=== PATIENT | male | born 1950 | race Caucasian/White ===

== ENCOUNTER 2018-01-31 07:17 | Day surgery (SDC) | payer OTHER, MEDICARE ==
--- NOTE | 2018-01-29 08:57 | RAD REPORT ---
EXAM DESCRIPTION: RADOP - Outpt Chest Pa/Lat (2 Views) - 01/29/2018 8:44 am CLINICAL HISTORY: Hypertension, tachycardia COMPARISON: 07/17/2016 FINDINGS: The lungs are clear. The heart is normal in size. No displaced fractures. Mild dextroscoli osis of the upper thoracic spine. IMPRESSION: No acute or concerning finding suspected.
--- NOTE | 2018-01-29 09:04 | EKG ---
Test Date: 2018-01-29 Test Time: 08:28:38 Dress Cutter: MARICRUZ MEASUREMENT RESULTS: Intervals: Rate: 63 ID: [id number] QRSD: 94 QT: 416 QTc: 425 [place]: P: 47 ID: [id number] QRS: 36 T: 29 INTERPRETIVE STATEMENTS: Normal sinus rhythm RSR' or QR pattern in V1 suggests right ventricular conduction delay Borderline ECG Compared to ECG 07/17/2016 05:45:08 RSR' in V1 or V2 now present Incomplete right bundle-branch block no longer present Electronically Signed On 01-29-18 09:03:44 CDT by Shaun Bedolla
[2018-01-29 09:36] LABS: Absolute Lymphocytes (CBC) 1.2 K/uL (0.7-4.9); Absolute Monocytes 0.4 K/uL (0.1-1.3); Absolute Neutrophil 2.8 K/uL (1.8-8.0); Basophils % 0.6 % (0-1.3); Eosinophils % 5.1 % (0-4.4); Hematocrit 41.4 % (39.6-49.0); Lymphocytes % 25.3 % (15.3-44.8); MCH 31.4 pg (27.0-35.0); MCV 94.6 fL (80-100); Monocytes % 8.2 % (3.3-12.3); RBC Red Blood Cell Count 4.38 M/uL (4.33-5.43)
[2018-01-29 10:05] LABS: Potassium 4.4 mEq/L (3.6-5.0)
[2018-01-29 10:12] LABS: Albumin 3.9 g/dL (3.2-5.5); Bilirubin Direct 0.1 mg/dL (0-0.2); Bilirubin Total 0.6 mg/dL (0.3-1.2); Protein, Total 6.6 g/dL (6.0-8.3)
[2018-01-31] MEDS ORDERED: ROCURONIUM 50 MG/5 ML VIAL IV ONE (07:29)
[2018-01-31] MEDS ORDERED: MIDAZOLAM HCL 2 MG/2 ML INJ ONE (07:29)
[2018-01-31] MEDS ORDERED: LIDOCAINE 1% MPF 5 ML VIAL ONE (07:29)
[2018-01-31] MEDS ORDERED: FENTANYL CITR 100 MCG/2 ML ONE (07:29)
[2018-01-31] MEDS ORDERED: PROPOFOL 200 MG/20 ML VIAL IV ONE (07:29)
[2018-01-31] MEDS ORDERED: NA CHLORIDE 0.9% 1,000 ML ONE ×2 (07:32→10:12)
[2018-01-31] MEDS ORDERED: CEFOXITIN/SWI 1gm 1 GM/10 ML SYR ONE (09:09)
[2018-01-31] MEDS ORDERED: EPHEDRINE SULF 50 MG/5 ML SYR ONE (09:39)
[2018-01-31] MEDS ORDERED: ONDANSETRON 4 MG/2 ML VIAL ONE (09:55)
[2018-01-31] MEDS ORDERED: GLYCOPYRROLATE 0.2 MG/ML SYR ONE (09:55)
[2018-01-31] MEDS ORDERED: KETOROLAC 30 MG/ML INJ ONE (09:55)
[2018-01-31] MEDS ORDERED: NEOSTIGMINE 1 MG/ML -5 ML SYRINGE ONE (10:16)
[2018-01-31] MEDS ORDERED: MORPHINE 10 MG/ML VIAL ONE (10:28)
--- NOTE | 2018-01-31 10:57 | P.BOP ---
Preoperative diagnosis: acute cholecystitis, sympt cholelithiasis, hxof gallstone pancreatitis Postoperative diagnosis: same Primary procedure: Laparoscopic cholecystectomy Mechanic Sound Technician: AMBER CATHERINE Estimated blood loss: <10cc Specimen: gb Findings: as above Anesthesia: General Complications: None Transferred to: Recovery Room Condition: Good
[2018-01-31] MEDS ORDERED: CODEINE 30MG/APAP 300MG TAB ONE (11:49)
[2018-01-31 12:46] VITALS: BP 112/67; TEMP 97.2; O2SAT 100
--- NOTE | 2018-01-31 22:37 | OP ---
Surgeon: Leonid Chavez MD Judicial Clerk: Nichelle Ibanez. Preoperative Diagnoses: Acute cholecystitis, symptomatic cholelithiasis, history of gallstone pancre atitis, status post endoscopic retrograde cholangiopancreatography, stent placement and stent removal . Postoperative Diagnoses: Acute cholecystitis, symptomatic cholelithiasis, history of gallstone pancr eatitis, status post endoscopic retrograde cholangiopancreatography, stent placement and stent remova l. Procedure: Laparoscopic cholecystectomy. Estimated Blood Loss: Less than 10 cc. Specimen: Gallbladder. Findings: As above. Anesthesia: General plus local. Indications: This is the case of a 67-year-old patient, who comes to us with a history of acute chol ecystitis, symptomatic cholelithiasis. He said at one point he has gallstone pancreatitis, not too l catrachito ago he had an ERCP with stent placement and before he came to my office, he already had the stent removed. The patient was seen in the office, it was fully explained to him the benefits, alternativ es, and risks of laparoscopic, possible open cholecystectomy which include but are not limited to inf ection, bleeding, damage to adjacent structures, anesthesia complication, choledocholithiasis, bile l eak, pancreatitis, AR, and even . He also understands this may not relieve any symptoms. He mi ght need more than one surgical intervention. He understood. Signed a consent. He wants to have th e gallbladder removed before he get into the same issue he was before, so I do agree with him. Description Of Procedure: The patient was brought to the operating room, placed in the supine positi on. Anesthesia was done without complication. Abdominal area was prepped and draped in usual steril e fashion. Marcaine 0.5% injected for local anesthetic, followed by sharp incision of the skin in th e infraumbilical region. Incision was carried down to fascia, which was opened under direct vision. Peritoneum was encountered, opened under direct vision. Vicryl #1 placed inside the fascia. Andre trocar was carefully introduced. Pneumoperitoneum was obtained. Three more trocars were placed in the right upper quadrant, 5 mm each one of them under direct visualization. A grasper was placed in the fundus of the gallbladder, another grasper in the infundibulum, retracted the gallbladder in the inferolateral fashion exposing the triangle of Calot and obtaining critical view of safety. The fatt y tissue running gallbladder was slightly bit hard, not a surprising finding since the patient had hi story of pancreatitis in the past. We were able to remove the fat down, identify the cystic duct and cystic artery, ligate those placing at least 4 clips proximal, 1 clip distal, ligation in the middle . cystic artery, 3 clips proximal, 1 clip distal, and ligation in the middle. Cystic duct and cysti c artery were clearly isolated free circumferentially and a connection between those and the gallblad donato was clearly identified. After that we inspected the area once again. Clips were intact. No leny e leak. No bleeding. Gallbladder fossa was intact. At that moment, I proceeded to remove the troca rs under direct vision. Deflated pneumoperitoneum, closed the fascia with #1 Vicryl. Irrigated the subcutaneous tissue and closed that with 3-0 chromic and skin with 3-0 chromic and subcuticular closu re and Steri-Strips on top. Sponge count and instrument counts were correct. The patient tolerated the procedure well. The patient was sent to Recovery in stable condition. JOSEPH/MILLIE Voice ID: [id number] Report ID: [id number]
--- NOTE | 2018-01-31 22:43 | DS ---
Date of Discharge: 01/31/2018 Diagnoses: Acute cholecystitis, symptomatic cholelithiasis, history of gallstones pancreatitis, hist ory of endoscopic retrograde cholangiopancreatography with stent placement and stent removal. Procedure: Laparoscopic cholecystectomy. Disposition: Home. Activity: As tolerated. No heavy lifting. Followup: Follow up in my office in 1 week. Call for appointment [phone]. Keep area dry for 48 ho urs, then may shower. Keep Steri-Strips intact. Medications: Include Tylenol No. 3 q.4 hours p.r.n. pain and Cipro 500 p.o. q.12 hours. JOSEPH/MILLIE Voice ID: [id number] Report ID: [id number]
== END 2018-01-31 12:35 | disposition home or self-care (01) ==
LOC: OR 07:17
PROVIDERS: ATTEND Surgery
PROC: 0FT44ZZ Resection of Gallbladder, Percutaneous Endoscopic Approach (ICD-10-PCS; principal; 2018-01-31 08:30)
DX: K80.12 Calculus of gallbladder with acute and chronic cholecystitis without obstruction (principal); E11.9 Type 2 diabetes mellitus without complications; I10 Essential (primary) hypertension; K21.9 Gastro-esophageal reflux disease without esophagitis; Z98.890 Other specified postprocedural states; Z87.19 Personal history of other diseases of the digestive system; Z79.82 Long term (current) use of aspirin; Z88.3 Allergy status to other anti-infective agents; Z82.49 Family history of ischemic heart disease and other diseases of the circulatory system
CPT/HCPCS: 36415; 47562; 71046; 80048; 80076; 82150; 82962 ×2; 83690; 85025; 88304; 93005; J2250; J2405; J2710; J3010; J7030 ×2

== ENCOUNTER 2019-06-02 11:28 | Emergency (ER) | payer OTHER, MEDICARE ==
--- NOTE | 2019-06-02 13:07 | EDPHYS ---
Physician Documentation [facility] Name: Simone Trinidad Age: 68 yrs Sex: Male : 1950 Arrival Date: 06/02/2019 Time: 11:31 Bed 14 Private MD: Mike Garcia R ED Physician Jose Thomas HPI: 06/02 13:03 This 68 yrs old Male presents to ER via Ambulatory with complaints of gs Shoulder Pain, Hip Pain. 13:03 Onset: The symptoms/episode began/occurred 1 month(s) ago. Modifying factors: The gs symptoms are aggravated by lifting weight, movement. Associated signs and symptoms: Pertinent negatives: abdominal pain, chest pain, diaphoresis, Numbness in right arm, left arm, right leg and left leg. Severity of symptoms: At their worst the symptoms were moderate, in the emergency department the symptoms are unchanged. The patient has experienced similar episodes in the past, a few times. The patient has been recently seen by a physician: an orthopedic surgeon, with similar presenting complaints, lab tests were done, X-rays were performed. Historical: - Allergies: 12:01 No Known Allergies; tw2 - Home Meds: 12:01 metformin 500 mg Oral tab 1 tab 2 times per day [Active]; metoprolol tartrate 25 mg tw2 Oral tab 1 tab once daily [Active]; omeprazole 40 mg Oral cpDR 1 cap once daily [Active]; aspirin 325 mg oral tab [Active]; amlodipine 2.5 mg tab 1 tab once daily [Active]; losartan Oral [Active]; - PMHx: 12:01 Diabetes - NIDDM; Pancreatitis; Hypertension; tw2 - Immunization history:: Adult Immunizations. - Social history:: Smoking status: . - Ebola Screening: : Patient denies travel to an Ebola-affected area in the 21 days before illness onset. ROS: 13:03 All other systems are negative. gs Exam: 13:03 Head/Face: Normocephalic, atraumatic. Eyes: Pupils equal round and reactive to light, gs extra-ocular motions intact. Lids and lashes normal. Conjunctiva and sclera are non-icteric and not injected. Cornea within normal limits. Periorbital areas with no swelling, redness, or edema. ENT: Nares patent. No nasal discharge, no septal abnormalities noted. Tympanic membranes are normal and external auditory canals are clear. Oropharynx with no redness, swelling, or masses, exudates, or evidence of obstruction, uvula midline. Mucous membranes moist. Neck: Trachea midline, no thyromegaly or masses palpated, and no cervical lymphadenopathy. Supple, full range of motion without nuchal rigidity, or vertebral point tenderness. No Meningismus. Chest/axilla: Normal chest wall appearance and motion. Nontender with no deformity. No lesions are appreciated. Cardiovascular: Regular rate and rhythm with a normal S1 and S2. No gallops, murmurs, or rubs. Normal PMI, no JVD. No pulse deficits. Respiratory: Lungs have equal breath sounds bilaterally, clear to auscultation and percussion. No rales, rhonchi or wheezes noted. No increased work of breathing, no retractions or nasal flaring. Abdomen/GI: Soft, non-tender, with normal bowel sounds. No distension or tympany. No guarding or rebound. No evidence of tenderness throughout. Back: No spinal tenderness. No costovertebral tenderness. Full range of motion. Skin: Warm, dry with normal turgor. Normal color with no rashes, no lesions, and no evidence of cellulitis. Neuro: Awake and alert, GCS 15, oriented to person, place, time, and situation. Cranial nerves II-XII grossly intact. Motor strength 5/5 in all extremities. Sensory grossly intact. Cerebellar exam normal. Normal gait. 13:03 Constitutional: The patient appears alert, awake. 13:03 Musculoskeletal/extremity: Circulation is intact in all extremities. Joints: the left shoulder and right shoulder displays painful range of motion. Vital Signs: 11:58 BP 144 / 88; Pulse 88; Resp 17; Temp 98.2(TE); Pulse Ox 97% on R/A; Weight 84.37 kg; tw2 Height 5 ft. 10 in. (177.80 cm); Pain 9/10; 11:58 Body Mass Index 26.69 (84.37 kg, 177.80 cm) tw2 MDM: 12:58 Patient medically screened. 13:03 Differential diagnosis: tendonitis, arthritis. Data reviewed: vital signs, nurses notes. 13:03 Counseling: I had a detailed discussion with the patient and/or guardian regarding: the historical points, exam findings, and any diagnostic results supporting the discharge/admit diagnosis, the need for outpatient follow up. 06/02 13:20 Order name: Urine Culture ph Administered Medications: No medications were administered Disposition: 06/02/19 13:07 Discharged to Home. Impression: Monoarthritis, not elsewhere classified, right shoulder. - Condition is Stable. - Discharge Instructions: Shoulder Range of Motion Exercises, Arthritis, [id number]. - Prescriptions for Prednisone 20 mg Oral Tablet - take 1 tablet by ORAL route once daily for 5 days; 5 tablet. Tramadol 50 mg Oral Tablet - take 1 tablet by ORAL route every 8 hours as needed; 12 tablet. - Medication Reconciliation Form, Thank You Letter, Antibiotic Education, Prescription Opioid Use form. - Follow up: Private Physician; When: 2 - 3 days; Reason: Re-evaluation by your physician. Signatures: Dispatcher [employer] Shira Lucas RN RN ph Kiara Méndez RN RN tw2 Jose Thomas MD MD Corrections: (The following items were deleted from the chart) 13:21 13:07 06/02/2019 13:07 Discharged to Home. Impression: Monoarthritis, not elsewhere ph classified, right shoulder. Condition is Stable. Forms are Medication Reconciliation Form, Thank You Letter, Antibiotic Education, Prescription Opioid Use. Follow up: Private Physician; When: 2 - 3 days; Reason: Re-evaluation by your physician. gs
--- NOTE | 2019-06-02 13:07 | ER ---
Nurse's Notes [facility] Name: Simone Trinidad Age: 68 yrs Sex: Male : 1950 Arrival Date: 06/02/2019 Time: 11:31 Bed 14 Private MD: Mike Garcia R Diagnosis: Monoarthritis, not elsewhere classified, right shoulder Presentation: 06/02 11:57 Presenting complaint: Patient states: i have having a lot of pain in my hips and tw2 shoulders both sides, the pain in my hips has been going on for 8 months, its really bad, i can hardly get up and down, i went to Dr. Jacob and he did xrays here and some blood tests and i havent got the results back yet, he didn't offer any pain control or anything like that, nubia is not working. Transition of care: patient was not received from another setting of care. Risk Assessment: Do you want to hurt yourself or someone else? Patient reports no desire to harm self or others. Initial Sepsis Screen: Does the patient meet any 2 criteria? No. Patient's initial sepsis screen is negative. Does the patient have a suspected source of infection? No. Patient's initial sepsis screen is negative. Care prior to arrival: None. 11:57 Method Of Arrival: Ambulatory tw2 11:57 Acuity: CAROL 3 tw2 12:01 Onset of symptoms was June 02, 2019. Note pt states "all these tests and xrays were tw2 done recently, id like the results and something to help with the pain". Triage Assessment: 12:01 General: Appears in no apparent distress. well groomed, Behavior is calm, cooperative, tw2 appropriate for age. Pain: Complains of pain in Left and Right hips, Left and Right shoulders. Historical: - Allergies: 12:01 No Known Allergies; tw2 - Home Meds: 12:01 metformin 500 mg Oral tab 1 tab 2 times per day [Active]; metoprolol tartrate 25 mg tw2 Oral tab 1 tab once daily [Active]; omeprazole 40 mg Oral cpDR 1 cap once daily [Active]; aspirin 325 mg oral tab [Active]; amlodipine 2.5 mg tab 1 tab once daily [Active]; losartan Oral [Active]; - PMHx: 12:01 Diabetes - NIDDM; Pancreatitis; Hypertension; tw2 - Immunization history:: Adult Immunizations. - Social history:: Smoking status: . - Ebola Screening: : Patient denies travel to an Ebola-affected area in the 21 days before illness onset. Screenin:19 Abuse screen: Denies threats or abuse. Nutritional screening: No deficits noted. tw2 Tuberculosis screening: No symptoms or risk factors identified. Fall Risk Secondary diagnosis (15 points) impaired mobility. Assessment: 12:45 General: Appears in no apparent distress. comfortable, slender, well groomed, Behavior ph is calm, cooperative, appropriate for age, Denies fever, feeling ill. Pain: Complains of pain in right shoulder and left shoulder and left leg and right leg. Neuro: Level of Consciousness is awake, alert, obeys commands, Oriented to person, place, time, situation. Cardiovascular: Capillary refill < 3 seconds in bilateral fingers Patient's skin is warm and dry. Respiratory: Airway is patent Respiratory effort is even, unlabored. Derm: Skin is intact, is healthy with good turgor, Skin is pink, warm \\T\\ dry. Musculoskeletal: Circulation, motion, and sensation intact. Range of motion: intact in all extremities, Swelling absent. Vital Signs: 11:58 BP 144 / 88; Pulse 88; Resp 17; Temp 98.2(TE); Pulse Ox 97% on R/A; Weight 84.37 kg; tw2 Height 5 ft. 10 in. (177.80 cm); Pain 9/10; 11:58 Body Mass Index 26.69 (84.37 kg, 177.80 cm) tw2 ED Course: 11:31 Patient arrived in ED. as 11:31 Mike Garcia MD is Private Physician. as 11:58 Triage completed. tw2 12:01 Arm band placed on. tw2 12:36 Shira Bethea RN is Primary Nurse. ph 12:40 Jose Thomas MD is Attending Physician. gs 13:00 Patient has correct armband on for positive identification. Bed in low position. Call ph light in reach. Side rails up X 1. Pulse ox on. NIBP on. Door closed. Noise minimized. 13:20 No provider procedures requiring assistance completed. Patient did not have IV access ph during this emergency room visit. Administered Medications: No medications were administered Outcome: 13:07 Discharge ordered by . gs 13:20 Discharged to home ambulatory, with family. ph 13:20 Condition: good 13:20 Discharge instructions given to patient, family, Instructed on discharge instructions, follow up and referral plans. medication usage, Demonstrated understanding of instructions, follow-up care, medications, Prescriptions given X 2. 13:21 Patient left the ED. ph Signatures: Bonnie Chavez Patricia, RN RN Kiara Méndez RN RN tw2 Jose Thomas MD MD
[2019-06-02 13:34] VITALS: BP 144/88; TEMP 98.2; O2SAT 97
== END 2019-06-02 13:21 | disposition home or self-care (01) ==
LOC: ER 11:28
DX: M13.111 Monoarthritis, not elsewhere classified, right shoulder (principal); I10 Essential (primary) hypertension; E11.9 Type 2 diabetes mellitus without complications
CPT/HCPCS: 87086; 87088; 99283

== ENCOUNTER 2020-06-01 02:23 | Emergency (ER) | payer OTHER, MEDICARE ==
[2020-06-01 04:02] LABS: Protime INR 0.92
[2020-06-01 04:06] LABS: Potassium 3.5 mmol/L (3.5-5.1)
[2020-06-01 04:15] LABS: Absolute Lymphocytes (CBC) 1.3 K/uL (0.7-4.9); Basophils % 0.5 % (0-1.3); Hematocrit 37.9 % (39.6-49.0); Lymphocytes % 19.4 % (15.3-44.8); MPV 8.9 fL (7.6-11.3); RBC Red Blood Cell Count 4.02 M/uL (4.33-5.43)
--- NOTE | 2020-06-01 05:06 | EDPHYS ---
Physician Documentation [facility] Name: Simone Trinidad Age: 69 yrs Sex: Male : 1950 Arrival Date: 06/01/2020 Time: 02:24 Bed 20 Private MD: ED Physician French Richard HPI: 06/01 05:42 This 69 yrs old Male presents to ER via Ambulatory with complaints of Vision tw4 Problem. 05:42 The patient is experiencing decreased vision. Onset: The symptoms/episode tw4 began/occurred today. Duration: the symptoms are continuous. Aggravated by nothing. Alleviated by nothing. Severity of symptoms: At their worst the symptoms were moderate in the emergency department the symptoms are unchanged. Historical: - Allergies: 02:53 No Known Allergies; mt2 - Home Meds: 02:49 amlodipine 2.5 mg tab 1 tab once daily for Hypertension [Active]; metformin 500 mg Oral mt2 tab 1 tab 2 times per day for Type 2 Diabetes Mellitus [Active]; metoprolol tartrate 25 mg Oral tab 1 tab once daily for Hypertension [Active]; losartan 100 mg oral tab 1 tab once daily for Hypertension [Active]; omeprazole 40 mg Oral cpDR 1 cap once daily for Gastroesophageal Reflux [Active]; aspirin 81 mg Oral chew 1 tab for Myocardial Infarction Prevention [Active]; Micardis 40 mg Oral tab 1 tab once daily for Hypertension [Active]; prednisone 5 mg Oral tab once daily for Rheumatoid Arthritis [Active]; Plaquenil 200 mg Oral tab 1 tab 2 times per day for Rheumatoid Arthritis [Active]; acetaminophen-codeine 300-30 mg Oral tab 1 tab prn for Pain [Active]; turmeric root extract 500 mg oral cap daily [Active]; - PMHx: 02:50 Rheumatoid Arthritis; mt2 02:53 Diabetes - NIDDM; Hypertension; Pancreatitis; mt2 - Immunization history:: Adult Immunizations up to date. - Social history:: Smoking status: Patient denies any tobacco usage or history of. ROS: 05:42 Constitutional: Negative for fever, chills, and weight loss, Eyes: Negative for injury, tw4 pain, redness, and discharge, Cardiovascular: Negative for chest pain, palpitations, and edema, Respiratory: Negative for shortness of breath, cough, wheezing, and pleuritic chest pain, Abdomen/GI: Negative for abdominal pain, nausea, vomiting, diarrhea, and constipation, Back: Negative for injury and pain, MS/Extremity: Negative for injury and deformity, Skin: Negative for injury, rash, and discoloration, Neuro: Negative for headache, weakness, numbness, tingling, and seizure. Exam: 05:42 Constitutional: This is a well developed, well nourished patient who is awake, alert, tw4 and in no acute distress. Head/Face: Normocephalic, atraumatic. Chest/axilla: Normal chest wall appearance and motion. Nontender with no deformity. No lesions are appreciated. Cardiovascular: Regular rate and rhythm with a normal S1 and S2. No gallops, murmurs, or rubs. Normal PMI, no JVD. No pulse deficits. Respiratory: Lungs have equal breath sounds bilaterally, clear to auscultation and percussion. No rales, rhonchi or wheezes noted. No increased work of breathing, no retractions or nasal flaring. Abdomen/GI: Soft, non-tender, with normal bowel sounds. No distension or tympany. No guarding or rebound. No evidence of tenderness throughout. 05:42 Back: No spinal tenderness. No costovertebral tenderness. Full range of motion. MS/ Extremity: Pulses equal, no cyanosis. Neurovascular intact. Full, normal range of motion. Neuro: Awake and alert, GCS 15, oriented to person, place, time, and situation. Cranial nerves II-XII grossly intact. Motor strength 5/5 in all extremities. Sensory grossly intact. Cerebellar exam normal. Normal gait. 05:42 Eyes: Periorbital structures: appear normal, funduscopic exam reveals no acute changes. Vital Signs: 02:42 BP 147 / 77; Pulse 77; Resp 18; Temp 98.1(O); Pulse Ox 98% on R/A; Weight 81.65 kg; lp1 04:25 BP 141 / 81; Pulse 73; Resp 16; Pulse Ox 97% ; Pain 0/10; mt2 05:30 BP 124 / 77; Pulse 74; Resp 16; Temp 98.0; Pulse Ox 97% ; Pain 0/10; mt2 MDM: 02:32 Patient medically screened. tw4 05:42 Differential diagnosis: Corneal abrasion of Corneal ulcer of. Data reviewed: vital tw4 signs, nurses notes. Data reviewed: lab test result(s), CBC, electrolytes, hepatic panel, radiologic studies, CT scan. Data interpreted: Pulse oximetry: Interpretation: normal. Test interpretation: by ED physician or midlevel provider: ECG. Counseling: I had a detailed discussion with the patient and/or guardian regarding: the historical points, exam findings, and any diagnostic results supporting the discharge/admit diagnosis. Physician consultation: Ashley Ellis MD was contacted at 05:00, regarding need to evaluate the patient as soon as possible, outpatient follow-up, and will see patient in office, later today. 06/01 02:43 Order name: Basic Metabolic Panel; Complete Time: 04:22 [facility] 06/01 04:22 Interpretation: Normal except: GLUC 179; BUN 29; CRE 1.51; GFR 46. [facility] 06/01 02:43 Order name: CBC with Diff; Complete Time: 04:22 [facility] 06/01 04:22 Interpretation: Normal except: RBC 4.02; HGB 13.1; HCT 37.9. [facility] 06/01 02:43 Order name: Protime (+inr); Complete Time: 04:22 [facility] 06/01 04:22 Interpretation: Within normal limits: PT 10.9. 06/01 02:43 Order name: Ptt, Activated; Complete Time: 04:22 [facility] 06/01 04:22 Interpretation: Within normal limits: PTT 29.6. tw 06/01 02:43 Order name: CT Stroke Brain w/o Contrast [facility] 06/01 03:48 Order name: Glucose, Ancillary Testing; Complete Time: 04:22 [facility] 06/01 04:22 Interpretation: Abnormal: GLUC,ANCIL 165. 06/01 02:43 Order name: EKG; Complete Time: 02:44 06/01 02:43 Order name: Accucheck; Complete Time: 03:30 [facility] 06/01 02:43 Order name: Cardiac monitoring; Complete Time: 03:30 [facility] 06/01 02:43 Order name: EKG - Nurse/Tech; Complete Time: 03:30 [facility] 06/01 02:43 Order name: IV Saline Lock; Complete Time: 03:30 [facility] 06/01 02:43 Order name: Labs collected and sent; Complete Time: 03:30 [facility] 06/01 02:43 Order name: NPO; Complete Time: 03:30 tw4 06/01 02:43 Order name: O2 Per Protocol; Complete Time: 03:30 tw4 06/01 02:43 Order name: O2 Sat Monitoring; Complete Time: 03:30 EC:42 Rate is 70 beats/min. Rhythm is regular with Right bundle branch block. QRS [place] is tw4 Normal. [place] interval is normal. QRS interval is normal. QT interval is normal. No Q waves. T waves are Inverted in leads III, V1. No ST changes noted. Clinical impression: NSR w/ Non-specific ST/T Changes. Interpreted by me. Reviewed by me. Administered Medications: 05:30 Drug: predniSONE 60 mg Route: PO; mt2 05:45 Follow up: Response: No adverse reaction; Medication administered at discharge. mt2 Disposition: 06/01/20 05:05 Discharged to Home. Impression: Visual field defects. - Condition is Stable. - Discharge Instructions: Visual Disturbances. - Prescriptions for Medrol (Vlad) 4 mg Oral Tablets, Dose Pack - take 1 tablet by ORAL route as directed - follow package instructions; 1 packet. - Medication Reconciliation Form, Thank You Letter, Antibiotic Education, Prescription Opioid Use form. - Follow up: Ashley Ellis MD; When: Upon discharge from the Emergency Department; Reason: Recheck today's complaints, Continuance of care, Re-evaluation by your physician. - Problem is new. - Symptoms are unchanged. Signatures: Dispatcher [employer] EDMS Chica Enriquez RN RN lp1 French Richard MD MD tw4 Sariah Falcon RN RN mt2 Corrections: (The following items were deleted from the chart) 02:53 02:49 PMHx: Pancreatitis [Inactive]; mt2 mt2 02:53 02:49 PMHx: Hypertension [Inactive]; mt2 mt2 02:53 02:49 PMHx: Diabetes - NIDDM [Inactive]; mt2 mt2 05:47 05:05 06/01/2020 05:05 Discharged to Home. Impression: Visual field defects. Condition mt2 is Stable. Forms are Medication Reconciliation Form, Thank You Letter, Antibiotic Education, Prescription Opioid Use. Follow up: Ashley Ellis; When: Upon discharge from the Emergency Department; Reason: Recheck today's complaints, Continuance of care, Re-evaluation by your physician. Problem is new. Symptoms are unchanged. tw4
--- NOTE | 2020-06-01 05:06 | ER ---
Nurse's Notes [facility] Name: Simone Trinidad Age: 69 yrs Sex: Male : 1950 Arrival Date: 06/01/2020 Time: 02:24 Bed 20 Private MD: Diagnosis: Visual field defects Presentation: 06/01 02:42 Chief complaint: Patient states: States waking up to go to the bathroom this morning lp1 and had loss of vision to right eye, states "I see black from the 6 o'clock to 9 o;clock; States hx of polymyalgia rheumatica, spoke with specialist who recommended Prednisone for treatment;. Coronavirus screen: Client denies travel out of the [place] in the last 14 days. At this time, the client does not indicate any symptoms associated with coronavirus-19. Ebola Screen: No symptoms or risks identified at this time. Initial Sepsis Screen: Does the patient meet any 2 criteria? No. Patient's initial sepsis screen is negative. Does the patient have a suspected source of infection? No. Patient's initial sepsis screen is negative. Risk Assessment: Do you want to hurt yourself or someone else? Patient reports no desire to harm self or others. Onset of symptoms was June 01, 2020. 02:42 Method Of Arrival: Ambulatory lp1 02:42 Acuity: CAROL 3 lp1 Triage Assessment: 02:56 General: Appears uncomfortable, Behavior is cooperative. mt2 Historical: - Allergies: 02:53 No Known Allergies; mt2 - Home Meds: 02:49 amlodipine 2.5 mg tab 1 tab once daily for Hypertension [Active]; metformin 500 mg Oral mt2 tab 1 tab 2 times per day for Type 2 Diabetes Mellitus [Active]; metoprolol tartrate 25 mg Oral tab 1 tab once daily for Hypertension [Active]; losartan 100 mg oral tab 1 tab once daily for Hypertension [Active]; omeprazole 40 mg Oral cpDR 1 cap once daily for Gastroesophageal Reflux [Active]; aspirin 81 mg Oral chew 1 tab for Myocardial Infarction Prevention [Active]; Micardis 40 mg Oral tab 1 tab once daily for Hypertension [Active]; prednisone 5 mg Oral tab once daily for Rheumatoid Arthritis [Active]; Plaquenil 200 mg Oral tab 1 tab 2 times per day for Rheumatoid Arthritis [Active]; acetaminophen-codeine 300-30 mg Oral tab 1 tab prn for Pain [Active]; turmeric root extract 500 mg oral cap daily [Active]; - PMHx: 02:50 Rheumatoid Arthritis; mt2 02:53 Diabetes - NIDDM; Hypertension; Pancreatitis; mt2 - Immunization history:: Adult Immunizations up to date. - Social history:: Smoking status: Patient denies any tobacco usage or history of. Screenin:52 Abuse screen: Denies threats or abuse. Denies injuries from another. Nutritional lp1 screening: No deficits noted. Tuberculosis screening: No symptoms or risk factors identified. Fall Risk None identified. Assessment: 02:54 General: Appears uncomfortable, Behavior is cooperative. Pain: Complains of pain in mt2 face and right eye Pain currently is 7 out of 10 on a pain scale. Pain: Complains of pain in head and right arm. Neuro: Reports numbness in right hand. Cardiovascular: No deficits noted. Respiratory: No deficits noted. GI: No deficits noted. : No deficits noted. EENT: Reports blurred vision in iris of right eye and inner aspect of conjuctiva of right eye. Derm: No deficits noted. Musculoskeletal: Reports pain in left ear, left cheek, right base of the skull and face. 03:39 Reassessment: No changes from previously documented assessment. Patient and/or family mt2 updated on plan of care and expected duration. Pain level reassessed. Patient is alert, oriented x 3, equal unlabored respirations, skin warm/dry/pink. General: Appears uncomfortable, Behavior is cooperative. Pain: Complains of pain in right side of head Pain currently is 10 out of 10 on a pain scale. Quality of pain is described as sharp. 04:25 Reassessment: Patient and/or family updated on plan of care and expected duration. Pain mt2 level reassessed. Patient is alert, oriented x 3, equal unlabored respirations, skin warm/dry/pink. Patient denies pain at this time. General: Appears comfortable, Behavior is cooperative. Pain: Denies pain. 05:30 Reassessment: Patient and/or family updated on plan of care and expected duration. Pain mt2 level reassessed. Patient is alert, oriented x 3, equal unlabored respirations, skin warm/dry/pink. Patient denies pain at this time. Patient states symptoms have improved. General: Appears comfortable, Behavior is cooperative. Vital Signs: 02:42 BP 147 / 77; Pulse 77; Resp 18; Temp 98.1(O); Pulse Ox 98% on R/A; Weight 81.65 kg; lp1 04:25 BP 141 / 81; Pulse 73; Resp 16; Pulse Ox 97% ; Pain 0/10; mt2 05:30 BP 124 / 77; Pulse 74; Resp 16; Temp 98.0; Pulse Ox 97% ; Pain 0/10; mt2 ED Course: 02:24 Patient arrived in ED. cl3 02:32 Sariah Falcon, RN is Primary Nurse. mt2 02:32 French Richard MD is Attending Physician. tw4 02:52 Triage completed. lp1 02:52 Arm band placed on. lp1 02:56 Patient has correct armband on for positive identification. Bed in low position. Call mt2 light in reach. Side rails up X 1. 03:00 CT Stroke Brain w/o Contrast In Process Unspecified. EDMS 03:25 Initial lab(s) drawn, by me, held in ED. Inserted saline lock: 18 gauge in left wrist, mt2 using aseptic technique. Blood collected. 05:05 Ashley Ellis MD is Referral Physician. tw4 05:30 No provider procedures requiring assistance completed. IV discontinued, intact, mt2 bleeding controlled, No redness/swelling at site. Pressure dressing applied. Administered Medications: 05:30 Drug: predniSONE 60 mg Route: PO; mt2 05:45 Follow up: Response: No adverse reaction; Medication administered at discharge. mt2 Outcome: 05:05 Discharge ordered by . tw4 05:47 Patient left the ED. mt2 Signatures: Dispatcher [employer] EDMS Chica Enriquez, RN RN lp1 French Richard MD MD tw4 Donna Daly cl3 Sariah Falcon RN RN mt2 Corrections: (The following items were deleted from the chart) 02:53 02:49 PMHx: Pancreatitis [Inactive]; mt2 mt2 02:53 02:49 PMHx: Hypertension [Inactive]; mt2 mt2 02:53 02:49 PMHx: Diabetes - NIDDM [Inactive]; mt2 mt2
[2020-06-01] MEDS ORDERED: predniSONE 20 MG TAB ONE (05:41)
[2020-06-01 05:57] VITALS: O2SAT 97
[2020-06-01 05:59] VITALS: BP 124/77; TEMP 98
--- NOTE | 2020-06-01 12:05 | RAD REPORT ---
EXAM DESCRIPTION: CT - Ct Stroke Brain Wo Cont - 06/01/2020 4:21 am CLINICAL HISTORY: VISUAL DISTURBANCES COMPARISON: None Available. TECHNIQUE: Multiple helical axial tomographic images were obtained of the head without intravenous c ontrast. This exam was performed according to our departmental dose-optimization program, which inclu briana automated exposure control, adjustment of the mA and/or kV according to patient size and/or use o f iterative reconstruction technique. FINDINGS: There is no acute intracranial hemorrhage. No mass. No midline shift. No ventriculomegaly. Khalil-white matter differentiation is maintained. Paranasal sinuses are clear. Nonspecific opacification of right mastoid air cells is demonstrated. Or bits and orbital contents are unremarkable. Osseous structures are unremarkable. Surrounding soft tissues are unremarkable. IMPRESSION: No acute intracranial process. THIS REPORT CONTAINS FINDINGS THAT MAY BE CRITICAL TO PATIENT CARE: The findings were verbally discu ssed via telephone conference with Dr. Richard by Dr. Perdue at 0312 hours central time on June 01 0. The results were acknowledged and understood. Electronically signed by: Doni Perdue MD 06/01/2020 3:13 AM CDT Due to temporary technical issues with the PACS/Fluency reporting system, reports are being signed by the in house radiologist without review as a courtesy to ensure prompt reporting. The interpreting r adiologist is fully responsible for the content of the report.
== END 2020-06-01 05:47 | disposition home or self-care (01) ==
LOC: ER 02:23
DX: H54.7 Unspecified visual loss (principal); I10 Essential (primary) hypertension; E11.9 Type 2 diabetes mellitus without complications; Z79.82 Long term (current) use of aspirin
CPT/HCPCS: 36415; 70450; 80048; 82947; 85025; 85610; 85730; 93005; 99284; J7512

== ENCOUNTER 2020-06-03 08:15 | Day surgery (SDC) | payer OTHER, MEDICARE ==
--- NOTE | 2020-06-02 16:12 | RAD REPORT ---
EXAM DESCRIPTION: Chelsea Israel (2 Views)06/02/2020 3:58 pm CLINICAL HISTORY: Preop chest/hypertension COMPARISON: 2016 FINDINGS: The lungs appear clear of acute infiltrate. The heart is normal size IMPRESSION: No acute abnormalities displayed
[2020-06-03] MEDS ORDERED: LIDOCAINE 1% MPF 30 ML VIAL ONE (08:34)
[2020-06-03 08:38] VITALS: TEMP 96.9; O2SAT 95
[2020-06-03] MEDS ORDERED: NA CHLORIDE 0.9% 1,000 ML ONE (08:53)
[2020-06-03] MEDS ORDERED: CEFAZOLIN/SWI 1gm 1 GM/10 ML SYR ONE (08:54)
[2020-06-03] MEDS ORDERED: LIDOCAINE 2% MPF 5 ML VIAL ONE (09:50)
[2020-06-03] MEDS ORDERED: propofoL 200 MG/20 ML VIAL IV ONE (09:50)
[2020-06-03] MEDS ORDERED: MIDAZOLAM HCL 2 MG/2 ML INJ ONE (09:50)
[2020-06-03] MEDS ORDERED: FENTANYL CITR 100 MCG/2 ML ONE (09:50)
[2020-06-03] MEDS ORDERED: KETOROLAC 30 MG/ML INJ ONE (10:55)
--- NOTE | 2020-06-03 11:14 | OP ---
Date of Procedure: 06/03/2020 Surgeon: Dean Walker MD Rock Wool Insulator: ERIC Thakkar. Preoperative Diagnosis: Vision change on right side, rule out temporal arteritis. Postoperative Diagnosis: Vision change on right side, rule out temporal arteritis. Procedure: Right temporal artery biopsy and Doppler utilization. Estimated Blood Loss: Minimal. Specimen: Right temporal artery. Finding: As above. Anesthesia: MAC. Complications: None. The patient tolerated the procedure in stable condition, taken to Recovery in good general condition. Procedure In Detail: The patient was brought to the OR and placed in supine position and MAC anesthe donya was begun. Patient was prepped and draped in the usual sterile fashion. Doppler device was used to identify branch of the temporal artery anterior and superior to the right near. A 4 cm incision was made after Marcaine was infiltrated locally and then proximal and distal control of the branch of the temporal artery was done and tied off with 4-0 silk ties. Side branches were tied off with 4-0 silk ties as well and then a 4 cm segment sent to Pathology. Wound was irrigated. Bleeding was cont rolled cautery and then 4-0 chromic was used to approximate the subcutaneous tissue and close the ski n. Sterile dressing was applied. Patient was awakened and taken to Recovery in good general conditi on. Discharge Note: The patient will go to Day Surgery and home when stable. Disposition: Home. Condition: Stable. Discharge Instructions: Resume home medications and diet. Activity as tolerated. No heavy lifting. Remove outer dressing in 2 days. Shower. Keep wound clean and dry. Keep Steri-Strips on at all t imes. Tylenol No.3 one tablet p.o. q.4 p.r.n. pain. Follow up with me in [address] Ellis in 1 week. /MODL Voice ID: [id number] Report ID: [id number]
[2020-06-03 11:35] VITALS: BP 115/70
--- NOTE | 2020-06-04 08:44 | EKG ---
Test Date: 2020-06-02 Test Time: 15:45:57 Prevention Coordinator: JOSE MANUEL MEASUREMENT RESULTS: Intervals: Rate: 78 NV: 146 QRSD: 116 QT: 416 QTc: 474 [place]: P: 59 NV: 146 QRS: 51 T: 43 INTERPRETIVE STATEMENTS: Normal sinus rhythm Low voltage QRS Incomplete right bundle branch block Borderline ECG Compared to ECG 06/01/2020 03:12:14 Low QRS voltage now present Incomplete right bundle-branch block now present Right bundle-branch block no longer present Electronically Signed On 06-04-20 08:38:52 CDT by Lorne Marquez
== END 2020-06-03 11:28 | disposition home or self-care (01) ==
LOC: OR 08:15
PROVIDERS: ATTEND Surgery
PROC: 03BS0ZX Excision of Right Temporal Artery, Open Approach, Diagnostic (ICD-10-PCS; principal; 2020-06-03 09:45)
DX: H53.8 Other visual disturbances (principal); Z11.59 Encounter for screening for other viral diseases
CPT/HCPCS: 37609; 93005; 82947; 88305; 71046; U0002; J2704; J2250; J3010; J0690; J7030

== ENCOUNTER 2021-04-20 10:42 | Emergency (ER) | payer OTHER, MEDICARE ==
[2021-04-20] MEDS ORDERED: CIPROFLOXACIN 400mg IV 400 MG/200 ML BAG IV ONE (11:53)
[2021-04-20] MEDS ORDERED: CEFTRIAXONE/SWI 1gm 2 GM/20 ML SYR ONE (11:53)
[2021-04-20] MEDS ORDERED: ONDANSETRON 4 MG/2 ML VIAL ONE (11:53)
[2021-04-20] MEDS ORDERED: MORPHINE 2 MG/ML SYR ONE (11:53)
[2021-04-20] MEDS ORDERED: METRONIDAZOLE 500mg IVPB 500 MG/100 ML BAG IV ONE (11:53)
[2021-04-20] MEDS ORDERED: NA CHLORIDE 0.9% 1,000 ML ONE (11:54)
--- NOTE | 2021-04-20 11:59 | RAD REPORT ---
EXAM DESCRIPTION: CT - Abdomen Pelvis W Contrast - 04/20/2021 11:47 am CLINICAL HISTORY: Left lower quadrant pain COMPARISON: 07/16/2016 TECHNIQUE: Biphasic, helical CT imaging of the abdomen and pelvis was performed following oral and 1 00 ml non-ionic IV contrast. All CT scans are performed using dose optimization technique as appropriate and may include automated exposure control or mA/KV adjustment according to patient size. FINDINGS: Lung bases are clear. No edema or consolidation. No focal liver lesions are identified. Gallbladder surgically absent. No adrenal masses. The pancreas is within normal limits. Spleen is unremarkable. No hydronephrosis or renal calculi. No retroperiton eal adenopathy. Moderate inflammatory changes are present along the proximal sigmoid consistent with non perforated sigmoid diverticulitis. No free air or abscess Bladder is unremarkable. Normal appendi x. No acute fractures are identified. IMPRESSION: Nonperforated acute sigmoid diverticulitis. No complicating features.
[2021-04-20 12:06] LABS: ALT/SGPT 24 U/L (12-78); AST/SGOT 12 U/L (15-37); Albumin 3.2 g/dL (3.4-5.0); Alkaline Phosphatase 54 U/L (45-117); BUN Blood Urea Nitrogen 25 mg/dL (7-18); Bicarbonate 28 mmol/L (21-32); Bilirubin Direct < 0.1 mg/dL (0-0.2); Bilirubin Total 0.3 mg/dL (0.2-1.0); Glucose Level 154 mg/dL (74-106); Lipase 40 U/L (73-393); Potassium 3.8 mmol/L (3.5-5.1); Protein, Total 6.7 g/dL (6.4-8.2); Sodium Level 140 mmol/L (136-145)
[2021-04-20 12:16] LABS: Absolute Lymphocytes (CBC) 0.9 K/uL (0.7-4.9); Basophils % 0.5 % (0-1.3); Hematocrit 36.9 % (39.6-49.0); Lymphocytes % 11.1 % (15.3-44.8); MPV 9.1 fL (7.6-11.3); RBC Red Blood Cell Count 3.92 M/uL (4.33-5.43)
--- NOTE | 2021-04-20 13:32 | EDPHYS ---
Physician Documentation [facility] Name: Simone Trinidad Age: 70 yrs Sex: Male : 1950 Arrival Date: 04/20/2021 Time: 10:43 Bed 5 Private MD: ED Physician Benedict Arenas HPI: 04/20 11:18 This 70 yrs old Male presents to ER via Ambulatory with complaints of henry Abdominal Pain. 11:18 The patient presents with abdominal pain in the left upper quadrant, in the left lower henry quadrant, abdominal distention in the upper abdomen, in the lower abdomen. Onset: The symptoms/episode began/occurred 3 day(s) ago. The symptoms do not radiate. Associated signs and symptoms: none. The symptoms are described as constant, crampy. Modifying factors: The symptoms are alleviated by nothing, the symptoms are aggravated by movement, walking. Severity of pain: At its worst the pain was moderate in the emergency department the pain is unchanged. The patient has not experienced similar symptoms in the past. Historical: - Allergies: 10:51 Spcqicf-Hmk-Dzg Reductase Inhibitors; sv - PMHx: 10:51 Diabetes - NIDDM; Hypertension; Pancreatitis; Rheumatoid Arthritis; Polymyalgia sv rheumatica; Giant cell arthritis; - PSHx: 10:51 None; sv - Immunization history:: Client reports having NOT received the Covid vaccine. - Social history:: Smoking status: Patient denies any tobacco usage or history of. - Family history:: not pertinent. ROS: 11:18 Constitutional: Negative for fever, chills, and weight loss, Eyes: Negative for injury, henry pain, redness, and discharge, ENT: Negative for injury, pain, and discharge, Neck: Negative for injury, pain, and swelling, Cardiovascular: Negative for chest pain, palpitations, and edema, Respiratory: Negative for shortness of breath, cough, wheezing, and pleuritic chest pain, Back: Negative for injury and pain, : Negative for injury, bleeding, discharge, and swelling, MS/Extremity: Negative for injury and deformity, Skin: Negative for injury, rash, and discoloration, Neuro: Negative for headache, weakness, numbness, tingling, and seizure, Psych: Negative for depression, anxiety, suicide ideation, homicidal ideation, and hallucinations, Allergy/Immunology: Negative for hives, rash, and allergies, Endocrine: Negative for neck swelling, polydipsia, polyuria, polyphagia, and marked weight changes, Hematologic/Lymphatic: Negative for swollen nodes, abnormal bleeding, and unusual bruising. 11:18 Abdomen/GI: Positive for abdominal pain, of the left upper quadrant and left lower quadrant. Exam: 11:18 Constitutional: This is a well developed, well nourished patient who is awake, alert, henry and in no acute distress. Head/Face: Normocephalic, atraumatic. Eyes: Pupils equal round and reactive to light, extra-ocular motions intact. Lids and lashes normal. Conjunctiva and sclera are non-icteric and not injected. Cornea within normal limits. Periorbital areas with no swelling, redness, or edema. ENT: Nares patent. No nasal discharge, no septal abnormalities noted. Tympanic membranes are normal and external auditory canals are clear. Oropharynx with no redness, swelling, or masses, exudates, or evidence of obstruction, uvula midline. Mucous membranes moist. Neck: Trachea midline, no thyromegaly or masses palpated, and no cervical lymphadenopathy. Supple, full range of motion without nuchal rigidity, or vertebral point tenderness. No Meningismus. Chest/axilla: Normal chest wall appearance and motion. Nontender with no deformity. No lesions are appreciated. Cardiovascular: Regular rate and rhythm with a normal S1 and S2. No gallops, murmurs, or rubs. Normal PMI, no JVD. No pulse deficits. Respiratory: Lungs have equal breath sounds bilaterally, clear to auscultation and percussion. No rales, rhonchi or wheezes noted. No increased work of breathing, no retractions or nasal flaring. Back: No spinal tenderness. No costovertebral tenderness. Full range of motion. Male : Normal genitalia with no discharge or lesions. Skin: Warm, dry with normal turgor. Normal color with no rashes, no lesions, and no evidence of cellulitis. MS/ Extremity: Pulses equal, no cyanosis. Neurovascular intact. Full, normal range of motion. Neuro: Awake and alert, GCS 15, oriented to person, place, time, and situation. Cranial nerves II-XII grossly intact. Motor strength 5/5 in all extremities. Sensory grossly intact. Cerebellar exam normal. Normal gait. Psych: Awake, alert, with orientation to person, place and time. Behavior, mood, and affect are within normal limits. 11:18 Abdomen/GI: Inspection: distension, Bowel sounds: normal, Palpation: moderate abdominal tenderness, in the anterior aspect of left lateral abdomen, posterior aspect of left lateral abdomen, left upper quadrant and left lower quadrant, Liver: no appreciated palpable abnormalities, Hernia: not appreciated. 13:33 ECG was reviewed by the Attending Physician. [facility] Vital Signs: 10:52 BP 131 / 72; Pulse 78; Resp 16; Temp 97; Pulse Ox 98% ; Weight 95.25 kg; Height 5 ft. 8 sv in. (172.72 cm); Pain 7/10; 12:00 BP 120 / 76; Pulse 70; Resp 16; Pulse Ox 99% ; bp 14:00 BP 127 / 78; Pulse 75; Resp 16; Temp 97.5; Pulse Ox 98% ; bp 10:52 Body Mass Index 31.93 (95.25 kg, 172.72 cm) sv MDM: 10:58 Patient medically screened. [facility] 11:21 Differential diagnosis: AAA, diverticulitis, gastritis, gastroesophageal reflux henry disease, Mesenteric ischemia or infarction, non-specific abd pain, pancreatitis, Peptic Ulcer Disease, Peritonitis, Ureterolithiasis, urinary tract infection. Data reviewed: vital signs, nurses notes, lab test result(s), EKG, radiologic studies, CT scan. Data interpreted: monitoring specialist: rate is 78 beats/min, rhythm is regular, Pulse oximetry: on room air is 98 %. Test interpretation: by ED physician or midlevel provider: ECG. Counseling: I had a detailed discussion with the patient and/or guardian regarding: the historical points, exam findings, and any diagnostic results supporting the discharge/admit diagnosis, lab results, radiology results, the need for further work-up and treatment in the hospital. 04/20 11:11 Order name: Basic Metabolic Panel; Complete Time: 13:26 [facility] 04/20 11:11 Order name: CBC with Diff; Complete Time: 13:26 [facility] 04/20 11:11 Order name: Hepatic Function; Complete Time: 13:26 [facility] 04/20 11:11 Order name: Lipase; Complete Time: 13:26 [facility] 04/20 11:11 Order name: Urine Culture [facility] 04/20 13:40 Order name: Urine Dipstick-Ancillary; Complete Time: 14:34 EDMS 07/06 11:11 Order name: EKG; Complete Time: 11:12 [facility] 04/20 11:11 Order name: CT Abd/Pelvis - IV Contrast Only; Complete Time: 13:26 [facility] 04/20 11:11 Order name: IV Saline Lock; Complete Time: 13:24 [facility] 04/20 11:11 Order name: Labs collected and sent; Complete Time: 13:24 [facility] 04/20 11:11 Order name: EKG - Nurse/Tech; Complete Time: 13:25 [facility] EC:33 Rate is 78 beats/min. Rhythm is regular. QRS [place] is Normal. [place] interval is normal. QRS henry interval is normal. QT interval is normal. No Q waves. T waves are Normal. No ST changes noted. Clinical impression: NSR w/ Non-specific ST/T Changes and No evidence of ischemia. Interpreted by me. Reviewed by me. Administered Medications: 11:40 Drug: NS 0.9% 1000 ml Route: IV; Rate: 1 bolus; Site: right upper arm; bp 11:40 Drug: Cipro (ciprofloxacin) 400 mg Volume: 200 ml; Route: IVPB; Infused Over: 60 mins; bp Site: right upper arm; 14:48 Follow up: IV Intake: 100ml bp 14:49 Follow up: IV Intake: 200ml bp 11:40 Drug: Flagyl (metroNIDAZOLE) 500 mg Volume: 100 ml; Route: IVPB; Rate: 200 ml/hr; bp Infused Over: 30 mins; Site: right upper arm; 14:47 Follow up: IV Status: Completed infusion; IV Intake: 100ml bp 11:40 Drug: morphine 2 mg Route: IVP; Site: right upper arm; bp 14:46 Follow up: Response: Pain is decreased bp 11:40 Drug: Zofran (Ondansetron) 4 mg Route: IVP; Site: right upper arm; bp 14:46 Follow up: Response: Nausea is decreased bp 11:40 Drug: Rocephin (cefTRIAXone) 2 grams Route: IV; Rate: per protocol; Site: right upper bp arm; 14:46 Follow up: IV Status: Completed infusion; IV Intake: 50ml bp Disposition Summary: 04/20/21 13:32 Discharge Ordered Location: Home henry Problem: new henry Symptoms: have improved henry Condition: Stable henry Diagnosis - Abdominal tenderness henry - Diverticulitis of large intestine without perforation or abscess without bleeding henry Followup: henry - With: Private Physician - When: 2 - 3 days - Reason: Recheck today's complaints, Continuance of care, Re-evaluation by your physician Followup: henry - With: Michel Daniels MD - When: 2 - 3 days - Reason: Recheck today's complaints, Continuance of care, Re-evaluation by your physician Discharge Instructions: - Discharge Summary Sheet henry - High-Fiber Diet henry - Diverticulitis henry - Diverticulitis, [id number] [facility] Forms: - Medication Reconciliation Form henry - Thank You Letter henry - Antibiotic Education henry - Prescription Opioid Use henry Prescriptions: - Flagyl 500 mg Oral Tablet - take 1 tablet by ORAL route every 6 hours for 10 days; 40 tablet; Refills: 0, [facility] Product Selection Permitted - Cipro 500 mg Oral Tablet - take 1 tablet by ORAL route every 12 hours for 10 days; 20 tablet; Refills: 0, [facility] Product Selection Permitted - dicyclomine 20 mg Oral Tablet - take 1 tablet by ORAL route 4 times per day; 20 tablet; Refills: 0, Product [facility] Selection Permitted Signatures: Dispatcher [employer] Anjelica Woo RN RN sv Anderson, Corey, MD MD cha Peltier, Brian RN RN bp Corrections: (The following items were deleted from the chart) 10:51 10:51 Allergies: No Known Allergies; [facility]
--- NOTE | 2021-04-20 13:32 | ER ---
Nurse's Notes [facility] Name: Simone Trinidad Age: 70 yrs Sex: Male : 1950 Arrival Date: 04/20/2021 Time: 10:43 Bed 5 Private MD: Diagnosis: Abdominal tenderness;Diverticulitis of large intestine without perforation or abscess without bleeding Presentation: 04/20 10:50 Chief complaint: Patient states: LLQ pain that radiates to the left groin x 3 days. sv Denies n/v. Coronavirus screen: Client denies travel out of the [place] in the last 14 days. At this time, the client does not indicate any symptoms associated with coronavirus-19. Ebola Screen: No symptoms or risks identified at this time. Risk Assessment: Do you want to hurt yourself or someone else? Patient reports no desire to harm self or others. Onset of symptoms was April 2021. 10:50 Method Of Arrival: Ambulatory sv 10:50 Acuity: CAROL 3 sv 10:52 Initial Sepsis Screen: Does the patient meet any 2 criteria? No. Patient's initial sv sepsis screen is negative. Does the patient have a suspected source of infection? No. Patient's initial sepsis screen is negative. Triage Assessment: 10:54 General: Appears in no apparent distress. uncomfortable, Behavior is calm, cooperative, sv appropriate for age. Pain: Complains of pain in left lower quadrant and left inguinal area. Neuro: Level of Consciousness is awake, alert, obeys commands, Gait is steady. Respiratory: Respiratory effort is even, unlabored. Historical: - Allergies: 10:51 Ucjefuh-Yat-Avr Reductase Inhibitors; sv - PMHx: 10:51 Diabetes - NIDDM; Hypertension; Pancreatitis; Rheumatoid Arthritis; Polymyalgia sv rheumatica; Giant cell arthritis; - PSHx: 10:51 None; sv - Immunization history:: Client reports having NOT received the Covid vaccine. - Social history:: Smoking status: Patient denies any tobacco usage or history of. - Family history:: not pertinent. Screenin:45 Abuse screen: Denies threats or abuse. Denies injuries from another. Nutritional bp screening: No deficits noted. Tuberculosis screening: No symptoms or risk factors identified. Fall Risk None identified. Assessment: 11:00 General: SEE TRIAGE NOTE. bp 12:00 GI: Bowel sounds present X 4 quads. Abd is soft X 4 quads. bp 13:30 Reassessment: D/C ON HOLD FOR IV ABX COMPLETION. bp 14:41 Reassessment: PT D/C HOME AMBULATORY WITH FAMILY, DX WITH DIVERTICULITIS. bp Vital Signs: 10:52 BP 131 / 72; Pulse 78; Resp 16; Temp 97; Pulse Ox 98% ; Weight 95.25 kg; Height 5 ft. 8 sv in. (172.72 cm); Pain 7/10; 12:00 BP 120 / 76; Pulse 70; Resp 16; Pulse Ox 99% ; bp 14:00 BP 127 / 78; Pulse 75; Resp 16; Temp 97.5; Pulse Ox 98% ; bp 10:52 Body Mass Index 31.93 (95.25 kg, 172.72 cm) sv ED Course: 10:43 Patient arrived in ED. wm 10:51 Triage completed. sv 10:51 Arm band placed on. sv 10:57 Benedict Arenas MD is Attending Physician. henry 11:30 Inserted saline lock: 22 gauge in right upper arm, using aseptic technique. Blood bp collected. 11:45 Patient has correct armband on for positive identification. Allergy band placed. Bed in bp low position. Call light in reach. Side rails up X2. Adult w/ patient. 11:47 CT Abd/Pelvis - IV Contrast Only In Process Unspecified. EDMS 13:28 EKG done, by ED staff, reviewed by Benedict Arenas MD. dh3 13:30 Michel Daniels MD is Referral Physician. henry 14:41 No provider procedures requiring assistance completed. IV discontinued, intact, bp bleeding controlled, No redness/swelling at site. Pressure dressing applied. Administered Medications: 11:40 Drug: NS 0.9% 1000 ml Route: IV; Rate: 1 bolus; Site: right upper arm; bp 11:40 Drug: Cipro (ciprofloxacin) 400 mg Volume: 200 ml; Route: IVPB; Infused Over: 60 mins; bp Site: right upper arm; 14:48 Follow up: IV Intake: 100ml bp 14:49 Follow up: IV Intake: 200ml bp 11:40 Drug: Flagyl (metroNIDAZOLE) 500 mg Volume: 100 ml; Route: IVPB; Rate: 200 ml/hr; bp Infused Over: 30 mins; Site: right upper arm; 14:47 Follow up: IV Status: Completed infusion; IV Intake: 100ml bp 11:40 Drug: morphine 2 mg Route: IVP; Site: right upper arm; bp 14:46 Follow up: Response: Pain is decreased bp 11:40 Drug: Zofran (Ondansetron) 4 mg Route: IVP; Site: right upper arm; bp 14:46 Follow up: Response: Nausea is decreased bp 11:40 Drug: Rocephin (cefTRIAXone) 2 grams Route: IV; Rate: per protocol; Site: right upper bp arm; 14:46 Follow up: IV Status: Completed infusion; IV Intake: 50ml bp Intake: 14:46 IV: 50ml; Total: 50ml. bp 14:47 IV: 100ml; Total: 150ml. bp 14:48 IV: 100ml; Total: 250ml. bp 14:49 IV: 200ml; Total: 450ml. bp Outcome: 13:32 Discharge ordered by . henry 14:43 Discharged to home ambulatory, with family. bp 14:43 Condition: stable 14:43 Discharge instructions given to Instructed on discharge instructions, follow up and referral plans. medication usage, Demonstrated understanding of instructions, follow-up care, medications, Prescriptions given X 3. 14:43 Instructed on Prescriptions given X 14:51 Patient left the ED. bp Signatures: Dispatcher [employer] EDMS Anjelica Duval RN RN sv Anderson, Corey, MD MD cha Calderon, Audri, RN RN aa5 Love Walls [facility] Obinna Ghosh RN RN bp Marsh, Wendy Corrections: (The following items were deleted from the chart) 10:51 10:51 Allergies: No Known Allergies; sv sv 10:55 10:52 Pulse 78bpm; Resp 16bpm; Pulse Ox 98%; Temp 97F; 95.25 kg; Height 5 ft. 8 in.; sv BMI: 31.9; Pain 7/10; sv 14:02 14:01 Reassessment: bp bp 17:37 10:58 Sofy James, RN is Primary Nurse. aa5 aa5
[2021-04-20 13:40] LABS: Urine Blood Negative (Negative); Urine Glucose Negative (Negative); Urine Protein Negative (Negative); Urine Specific Gravity 1.015 (1.005-1.030)
[2021-04-20 15:02] VITALS: BP 127/78; TEMP 97.5; O2SAT 98
--- NOTE | 2021-04-21 13:01 | EKG ---
Test Date: 2021-04-20 Test Time: 13:25:57 Physical Anthropologist: SIGIFREDO MEASUREMENT RESULTS: Intervals: Rate: 64 PA: 154 QRSD: 124 QT: 438 QTc: 451 [place]: P: 53 PA: 154 QRS: 20 T: 11 INTERPRETIVE STATEMENTS: Normal sinus rhythm Right bundle branch block Abnormal ECG Compared to ECG 06/02/2020 15:45:57 Right bundle-branch block now present Incomplete right bundle-branch block no longer present Electronically Signed On 04-21-21 12:59:33 CDT by Lorne Marquez
== END 2021-04-20 14:51 | disposition home or self-care (01) ==
LOC: ER 10:42
DX: K57.32 Diverticulitis of large intestine without perforation or abscess without bleeding (principal); I10 Essential (primary) hypertension; Z88.8 Allergy status to other drugs, medicaments and biological substances
CPT/HCPCS: 96365; 96368; 93005; 87088; 85025; 87086; 80048; 36415; 82565; 80076; 81003; 83690; 74177; 96375; 99284; 96366; Q9967; J2270; J0696; J7030; J2405; J0744

== ENCOUNTER 2024-05-24 09:20 | Day surgery (SDC) | payer OTHER, MEDICARE ==
[2024-05-20 13:38] LABS: Hemoglobin 13.2 g/dL (13.6-17.9)
[2024-05-20 13:39] LABS: Absolute Lymphocytes (CBC) 0.5 K/uL (0.7-4.9); Absolute Monocytes 0.3 K/uL (0.1-1.3); Absolute Neutrophil 4.4 K/uL (1.8-8.0); Basophils % 0.4 % (0-1.3); Eosinophils % 0.6 % (0-4.4); Hematocrit 40.7 % (39.6-49.0); MCH 33.9 pg (27.0-35.0); MCHC 32.5 g/dL (32.0-36.0); MCV 104.3 fL (80-100); MPV 9.3 fL (7.6-11.3); Monocytes % 6.4 % (3.3-12.3); Neutrophils % 82.6 % (41.7-73.7); Nucleated Red Blood Cells % 0.2 % (0-0); Platelets 198 thou/uL (152-406)
[2024-05-20 13:42] LABS: Anion Gap 7.5 mEq/L (5.0-15.0)
[2024-05-20 13:45] LABS: Potassium 4.5 mEq/L (3.5-5.1)
--- NOTE | 2024-05-20 16:57 | EKG ---
Test Date: 2024-05-20 Test Time: 12:29:53 Lines Tender: PREO MEASUREMENT RESULTS: Intervals: Rate: 65 ME: 142 QRSD: 120 QT: 426 QTc: 443 [place]: P: 53 ME: 142 QRS: 0 T: 10 INTERPRETIVE STATEMENTS: Normal sinus rhythm Low voltage QRS Right bundle branch block Abnormal ECG Compared to ECG 01/11/2023 11:38:50 Right bundle-branch block now present Electronically Signed On 05-20-24 16:56:31 CDT by Jett Agudelo
[2024-05-24] MEDS ORDERED: NA CHLORIDE 0.9% 1,000 ML ONE (09:30)
[2024-05-24] MEDS ORDERED: OXYMETAZOLINE HCL 0.05% 15ML NAS ONE ×2 (09:31→10:15)
[2024-05-24] MEDS ORDERED: LIDOCAINE 2% MPF 5 ML VIAL ONE (10:16)
[2024-05-24] MEDS ORDERED: ONDANSETRON 4 MG/2 ML VIAL ONE (10:16)
[2024-05-24] MEDS ORDERED: FENTANYL CITR 100 MCG/2 ML ONE (10:16)
[2024-05-24] MEDS ORDERED: propofoL 200 MG/20 ML VIAL IV ONE (10:16)
[2024-05-24] MEDS ORDERED: SUGAMMADEX SODIUM 200 MG/2 ML VIAL IV ONE (10:45)
[2024-05-24] MEDS ORDERED: ROCURONIUM 50 MG/5 ML VIAL IV ONE (11:30)
[2024-05-24] MEDS: CEFAZOLIN SODIUM 1 GM/VIAL IM ONE ×2 (11:37→11:39)
[2024-05-24] MEDS ORDERED: EPHEDRINE SULF 50 MG/ML VIAL ONE (11:39)
[2024-05-24] MEDS ORDERED: OFLOXACIN OPH 0.3%-5 ML BTL ONE (11:40)
[2024-05-24] MEDS ORDERED: dexAMETHasone 4 MG/ML VIAL ONE (11:41)
--- NOTE | 2024-05-24 12:30 | P.OP ---
Shuttle Veneering Supervisor: NONE,NONE Preoperative diagnosis: Right chronic eustachian salpingitis, right chronic otitis media, mixed HL Postoperative diagnosis: Same Primary procedure: Right myringotomy with tympanostomy tube placement Secondary procedure: Right nasal endoscopy with eustachian tube dilation Anesthesia: General Estimated blood loss: None Specimen: None Findings: No masses or ulcers of the eustachian tube or nasopharynx were noted Operative Technique: The patient was brought to the operating room placed under general anesthesia via oral endotracheal tube. The right ear was identified and examined using an ear speculum and operating microscope. The patient's ear canal was noted to be narrow and tortuous with difficulty visualizing the anterior tympanic membrane due to the degree of curvature. The ear appeared to be insufflated following induction of anesthesia. A myringotomy knife was used to make a radial incision in the posterior eardrum and a moderate amount of clear fluid was suctioned. There was no evidence of pulsations and although the fluid was very clear, after suctioning additional fluid was not noted within the middle ear space. Brief consideration was given in regards to differential diagnosis of CSF otorrhea, however given the lack of pulsations or additional fluid it was felt safe to proceed with tube placement. The middle ear mucosa was not significantly inflamed. A Paparella type I tube was positioned across the myringotomy using an alligator forcep and curved pick. No additional fluid was noted to be coming through the tube. This portion of the procedure was concluded and the microscope was removed from the field A 0 degree endoscope was used to perform a nasal endoscopy. The inferior turbinate, inferior meatus, middle turbinate, middle meatus and sphenoethmoid recess were examined on both the right and left side. A small amount of clear mucoid secretions were suctioned from the nasopharynx but otherwise there were no significant abnormalities or evidence of masses, lesions, ulcerations. There was no evidence of active sinus infection. The nasopharynx did not demonstrate any findings suggestive of neoplasm as a cause of the patient's unilateral eustachian tube dysfunction. A 30 degree rigid endoscope was then used to perform a nasal endoscopy with balloon dilation of the right side only. The balloon device was passed under endoscopic visualization into the nasopharynx and positioned at the opening of the eustachian tube. The balloon was carefully advanced into the eustachian tube and slowly inflated to a pressure of 2 jayme. There was no evidence of malpositioning and inflation proceeded to a maximum of 10 jayme. The pressure was held for a minute 40 seconds, then the balloon was deflated and the device completely removed. The 0 degree endoscope was used to examine the eustachian tube opening. There was scant amount of blood which did not require suctioning or other intervention. There was no evidence of immediate complication and the procedure was concluded. The patient was returned to care of anesthesia for awakening extubation in the operating room which proceeded without difficulty. Disposition: The patient will be discharged home later today and follow-up with Dr. Walls's office for tube check and postoperative evaluation. The patient's family is instructed to advised the patient to avoid nose blowing for at least 2 weeks following surgery. Given the very peripheral location of the tympanostomy tube, I suspect its duration will be relatively short but will allow the patient to have improvement in the short-term while the eustachian tube heals. Complications: None Implants: Paparella type I tube Fluids & blood products: See anesthesia record Transferred to: Recovery Room Condition: Good
[2024-05-24 13:51] VITALS: BP 115/69; TEMP 97.6; O2SAT 99
== END 2024-05-24 13:45 | disposition home or self-care (01) ==
LOC: OR 09:20
PROVIDERS: ATTEND Otolaryngology
PROC: 097F8ZZ Dilation of Right Eustachian Tube, Via Natural or Artificial Opening Endoscopic (ICD-10-PCS; 2024-05-24)
PROC: 099570Z Drainage of Right Middle Ear with Drainage Device, Via Natural or Artificial Opening (ICD-10-PCS; principal; 2024-05-24 11:00)
DX: H66.91 Otitis media, unspecified, right ear (principal); H90.6 Mixed conductive and sensorineural hearing loss, bilateral; H68.021 Chronic Eustachian salpingitis, right ear
CPT/HCPCS: 93005; 85025; 80048; 36415; 82947 ×2; 69436; 69705; J2704; J1100; J2001; J3010; J2405; J7030; J0690

== ENCOUNTER 2025-05-18 12:05 | Inpatient (IN) | payer OTHER, MEDICARE ==
[2025-05-18] MEDS ORDERED: NA CHLORIDE 0.9% 500 ML ONE (12:52)
[2025-05-18 13:12] LABS: Urine Microscopic Reflex YN NO UMIC
[2025-05-18 13:33] LABS: ALT/SGPT 15.0 U/L (16-61); AST/SGOT 16.0 U/L (15-37); Albumin 3.3 g/dL (3.4-5.0); Albumin/Globulin Ratio 0.9 (1.1-1.8); Alkaline Phosphatase 64.0 U/L (45-117); Anion Gap 12.7 mEq/L (5.0-15.0); BUN Blood Urea Nitrogen 40.0 mg/dL (7-18); Globulin 3.7 g/dL (2.3-3.5); Lipase 16.0 U/L (13-75); Potassium 4.7 mEq/L (3.5-5.1)
[2025-05-18 13:39] LABS: Glucose Level 482.0 mg/dL (74-106)
[2025-05-18 13:44] LABS: Absolute Lymphocytes (CBC) 0.4 K/uL (0.7-4.9); Hematocrit 39.7 % (39.6-49.0); Hemoglobin 13.2 g/dL (13.6-17.9); MCH 33.2 pg (27.0-35.0); MCHC 33.2 g/dL (32.0-36.0); MCV 100.1 fL (80-100); MPV 9.3 fL (7.6-11.3); Nucleated RBC Absolute Count 0.0 (0-0); Nucleated Red Blood Cells % 0.2 % (0-0); RBC Red Blood Cell Count 3.97 M/uL (4.33-5.43); White Blood Count 6.60 thou/uL (4.3-10.9)
[2025-05-18] MEDS ORDERED: INSULIN REGULAR (HUMAN) 100 UNIT/ML ONE (14:26)
--- NOTE | 2025-05-18 14:40 | RAD REPORT ---
EXAMINATION: CT Abdomen Pelvis Wo Contrast CLINICAL INDICATION: Male, 74 years old. ABD PAIN TECHNIQUE: CT abdomen and pelvis was performed, without IV contrast, as per department protocol. Axia l, sagittal and coronal reconstructions were obtained. One or more of the following dose reduction techniques were used: Automated exposure control, adjustment of the mA and kV according to the patien t size, and iterative reconstruction. Unless otherwise specified, incidental findings do not require dedicated imaging follow-up. COMPARISON: 04/20/2021 FINDINGS: The lack of intravenous contrast limits the sensitivity of this exam for evaluation of solid visceral organs, vascular structures, and retroperitoneum. LOWER CHEST: The visualized lung bases are clear. LIVER: Normal in size and contour. No focal lesion. BILIARY SYSTEM: Status post cholecystectomy. SPLEEN: Normal size. No focal lesion. PANCREAS: No mass, ductal dilation, or elissa-pancreatic fluid. ADRENALS: Normal; no mass. KIDNEYS AND URETERS: Normal size and contour. No hydronephrosis. URINARY BLADDER: Normal contour. GASTROINTESTINAL TRACT: Long segment wall thickening along the distal descending and sigmoid colon. M ild adventitial fat stranding along this segment, without focal diverticular inflammation. No adjacent fluid collection or free air. Moderate to extensive diverticulosis throughout the colon. No evidence of bowel obstruction, significant free fluid, free air or abscess. APPENDIX: Normal appendix. LYMPH NODES: No lymphadenopathy. MUSCULOSKELETAL: No acute or suspicious osseous abnormality. ADDITIONAL FINDINGS: None. IMPRESSION: Long segment inflammatory changes along the distal descending through sigmoid colon, without findings to suggest acute focal diverticulitis. Findings may relate to early or resolving changes of diverticulitis, versus segmental colitis. No evidence of complications.
[2025-05-18] MEDS ORDERED: CEFTRIAXONE 1000 MG/VIAL ONE (15:03)
[2025-05-18] MEDS ORDERED: NA CHLORIDE 0.9% 50 ML ONE (15:04)
[2025-05-18] MEDS ORDERED: METRONIDAZOLE 500mg IVPB 500 MG/100 ML BAG IV ONE (15:04)
--- NOTE | 2025-05-18 15:05 | EDPHYS ---
Physician Documentation [facility] Name: Simone Trinidad Age: 74 yrs Sex: Male : 1950 Arrival Date: 05/18/2025 Time: 12:05 Bed 5 Private MD: ED Physician Sotero Hernandez HPI: 05/18 13:10 This 74 yrs old Male presents to ER via Ambulatory with complaints of Urinary Problem, rn Diarrhea, High Blood Sugar. 13:10 Patient reports 3 days of lower abdominal pain, nonbloody diarrhea, difficulty rn urinating and high blood sugar. No fever or chills. No vomiting. Does report decreased appetite. Has history of diverticulosis and diverticulitis.. Historical: - Allergies: 12:43 Hmxvzyw-Flc-Lzf Reductase Inhibitors; dd2 - PMHx: 12:43 Diabetes - NIDDM; Giant Cell Arthritis; Hypertension; Pancreatitis; polymyalgia dd2 rheumatica; Rheumatoid Arthritis; SKIN CANCER; - PSHx: 12:43 Cholecystectomy; SKIN CANCER REMOVAL; dd2 - Immunization history:: Adult Immunizations up to date. - Infectious Disease History:: Denies. - Social history:: Smoking status: Patient denies any tobacco usage or history of. - Family history:: not pertinent. - Hospitalizations: : No recent hospitalization is reported. ROS: 13:10 Constitutional: Negative for fever, chills, and weight loss, Cardiovascular: Negative rn for chest pain, palpitations, and edema, Respiratory: Negative for shortness of breath, cough, wheezing, and pleuritic chest pain, Abdomen/GI: Positive for abdominal pain with decreased appetite and nonbloody diarrhea Back: Negative for injury and pain, MS/Extremity: Negative for injury and deformity, Neuro: Negative for headache, numbness, tingling, and seizure Exam: 13:10 Constitutional: This is a well developed, well nourished patient who is awake, alert rn Head/Face: Normocephalic, atraumatic. Eyes: Pupils equal round and reactive to light, extra-ocular motions intact. ENT: Dry MM Cardiovascular: Regular rate and rhythm. No pulse deficits. Respiratory: No increased work of breathing, no retractions or nasal flaring. Abdomen/GI: soft, non-tender, no masses or distension MS/ Extremity: Pulses equal, no cyanosis. Neuro: Awake and alert, GCS 15 Vital Signs: 12:41 BP 142 / 72; Pulse 67; Resp 16; Temp 98.4; Pulse Ox 99% on R/A; Weight 83.46 kg; Height dd2 5 ft. 9 in. ; Pain 6/10; 13:15 BP 133 / 69; Pulse 58; Resp 17; Pulse Ox 100% on R/A; ar8 15:30 BP 134 / 71; Pulse 61; Resp 16; Pulse Ox 98% on R/A; ar8 16:30 BP 135 / 74; Pulse 66; Resp 19; Pulse Ox 96% on R/A; ar8 12:41 Body Mass Index 27.17 (83.46 kg, 175.26 cm) dd2 12:41 Pain Scale: Adult dd2 [place] Coma Score: 12:47 Eye Response: spontaneous(4). Motor Response: obeys commands(6). Verbal Response: dd2 oriented(5). Total: 15. MDM: 12:13 Medical Screening Exam initiated rn 15:02 Differential diagnosis: Nonspecific abd pain, diverticulitis, viral gastroenteritis, rn gastroenteritis, Colitis. Data reviewed: vital signs, nurses notes, lab test result(s), radiologic studies, CT scan, and as a result, I will admit patient. Consideration of Admission/Observation Patient was admitted/placed on observation. Escalation of care including admission/observation considered. Management of patient was discussed with the following: Primary Care Provider: Discussed case with PCP, will admit for colitis. Independent interpretation of the following test(s) in the Emergency Department CT Scan: My interpretation is CT images show possible colitis left lower quadrant per my interpretation. Care significantly affected by the following chronic conditions: Diabetes, Hypertension, Pancreatitis, polymyalgia rheumatica. Counseling: I had a detailed discussion with the patient and/or guardian regarding the historical points, exam findings, and any diagnostic results supporting the discharge/admit diagnosis, lab results, radiology results, the need for further work-up and treatment in the hospital. Response to treatment: the patient's symptoms have mildly improved after treatment, and as a result, I will admit patient. 05/18 12:19 Order name: CBC with Diff; Complete Time: 14:02 rn 05/18 12:19 Order name: CMP; Complete Time: 14: rn 05/18 12:19 Order name: Lipase; Complete Time: 14:02 rn 05/18 12:19 Order name: UA Rfx Devaughn Cult if indicated; Complete Time: 14:02 rn 05/18 12:59 Order name: Glucose, Ancillary Testing; Complete Time: 14:02 EDMS 05/18 13:45 Order name: Abdomen ; Complete Time: 14:49 EDMS 05/18 12:19 Order name: IV Saline Lock; Complete Time: 12:49 rn 05/18 12:19 Order name: Labs collected and sent; Complete Time: 12:49 rn 05/18 12:19 Order name: Glucose Level; Complete Time: 12:49 rn Administered Medications: 12:56 Drug: NS 0.9% IV 500 ml 500 ml IV at 1 bolus once; to be given as a bolus over 30 ar8 minutes Volume: 500 ml; Route: IV; Rate: 1 bolus; Site: left antecubital; 13:30 Follow up: IV Status: Completed infusion dd2 14:30 Drug: Insulin Regular Human Sub-Q 5 units Sub-Q once {Co-Signature: dd2 (SARA ROSA RN).} Route: Sub-Q; Site: left upper arm; 14:45 Follow up: Response: No adverse reaction dd2 15:11 Drug: Rocephin IV 1 grams IV at calculated rate once; Given slow IV push per pharmacy dd2 instructions Route: IV; Rate: calculated rate; Site: left antecubital; 15:37 Follow up: Response: No adverse reaction; IV Status: Completed infusion dd2 15:37 Drug: metroNIDAZOLE IVPB 500 mg 100 ml IVPB at 200 ml/hr once over 30 mins Volume: 100 dd2 ml; Route: IVPB; Rate: 200 ml/hr; Infused Over: 30 mins; Site: left antecubital; 16:38 Follow up: Response: No adverse reaction; IV Status: Completed infusion; IV Intake: ar8 100ml Disposition Summary: 05/18/25 15:05 Hospitalization Ordered Notes: Hospitalization Status: Inpatient Admission rn Provider: Baldev Stewart rn [facility] rn Condition: Stable rn Problem: new rn Symptoms: have improved rn Bed/Room Type: Standard rn Room Assignment: 205(05/18/25 15:35) eb Diagnosis - Left sided colitis without complications rn - Dehydration rn - Muscle weakness (generalized) rn Forms: - Medication Reconciliation Form rn - SBAR form rn - Leadership Thank You Letter rn Signatures: Dispatcher [employer] EDMS Sotero Hernandez MD MD rn Blanchard, Shelby, RN RN ss Botello, Elizabeth eb DAVIS, DIANA, RN RN dd2 Amilcar Landry RN RN ar8 SARA ROSA RN dd2 Corrections: (The following items were deleted from the chart) 13:45 12:19 Abdomen Pelvis W Con+CT.RAD.BRZ ordered. EDMS EDMS 15:35 15:05 colin gonsales
--- NOTE | 2025-05-18 15:05 | ER ---
Nurse's Notes [facility] Name: Simone Trinidad Age: 74 yrs Sex: Male : 1950 Arrival Date: 05/18/2025 Time: 12:05 Bed 5 Private MD: Diagnosis: Left sided colitis without complications;Dehydration;Muscle weakness (generalized) Presentation: 05/18 12:41 Chief complaint: Patient states: DIARRHEA, DIFFICULTY URINATING, PRESSURE IN BLADDER, dd2 SLEEPING A LOT SINCE MONDAY AND TODAY, BLOOD SUGAR >400. Coronavirus screen: At this time, the client does not indicate any symptoms associated with coronavirus-19. Ebola Screen: No symptoms or risks identified at this time. Initial Sepsis Screen: Does the patient meet any 2 criteria? No. Patient's initial sepsis screen is negative. Does the patient have a suspected source of infection? No. Patient's initial sepsis screen is negative. Risk Assessment: Do you want to hurt yourself or someone else? Patient reports no desire to harm self or others. Onset of symptoms was May 15, 2025. 12:41 Method Of Arrival: Ambulatory dd2 12:41 Acuity: CAROL 3 dd2 Triage Assessment: 12:43 General: Appears in no apparent distress. uncomfortable, Behavior is calm, cooperative, dd2 appropriate for age. Pain: Complains of pain in suprapubic area Pain currently is 6 out of 10 on a pain scale. EENT: No deficits noted. No signs and/or symptoms were reported regarding the EENT system. Neuro: No deficits noted. Level of Consciousness is awake, alert, obeys commands, Oriented to person, place, time, situation, Appropriate for age. Cardiovascular: No deficits noted. Patient's skin is warm and dry. Respiratory: No deficits noted. Airway is patent Respiratory effort is even, unlabored, Respiratory pattern is regular, symmetrical. GI: Abdomen is round non-distended, Abd is soft X 4 quads Abdomen is tender to palpation in suprapubic area Reports diarrhea. : Urine is clear, Reports pain in suprapubic area urgency, urinary frequency. Derm: No deficits noted. No signs and/or symptoms reported regarding the dermatologic system. Musculoskeletal: No deficits noted. No signs and/or symptoms reported regarding the musculoskeletal system. Circulation, motion, and sensation intact. Range of motion: intact in all extremities. Historical: - Allergies: 12:43 Nwgzuop-Foj-Hqn Reductase Inhibitors; dd2 - PMHx: 12:43 Diabetes - NIDDM; Giant Cell Arthritis; Hypertension; Pancreatitis; polymyalgia dd2 rheumatica; Rheumatoid Arthritis; SKIN CANCER; - PSHx: 12:43 Cholecystectomy; SKIN CANCER REMOVAL; dd2 - Immunization history:: Adult Immunizations up to date. - Infectious Disease History:: Denies. - Social history:: Smoking status: Patient denies any tobacco usage or history of. - Family history:: not pertinent. - Hospitalizations: : No recent hospitalization is reported. Screenin:47 [facility] ED Fall Risk Assessment (Adult) History of falling in the last 3 months, dd2 including since admission No falls in past 3 months (0 pts) Confusion or Disorientation No (0 pts) Intoxicated or Sedated No (0 pts) Impaired Gait No (0 pts) Mobility Assist Device Used No (0 pt) Altered Elimination No (0 pt) Score/Fall Risk Level 0 - 2 = Low Risk Oriented to surroundings, Maintained a safe environment, Educated pt \T\ family on fall prevention, incl call for assistance when getting out of bed, Assessed \T\ reinforced patient's understanding of fall precautions, Hourly rounding (assess needs \T\ fall precautionary measures) done. Abuse screen: Denies threats or abuse. Denies injuries from another. Nutritional screening: No deficits noted. Tuberculosis screening: No symptoms or risk factors identified. Assessment: 12:47 Reassessment: SEE TRIAGE ASSESSMENT FOR FULL ASSESSMENT. dd2 Vital Signs: 12:41 BP 142 / 72; Pulse 67; Resp 16; Temp 98.4; Pulse Ox 99% on R/A; Weight 83.46 kg; Height dd2 5 ft. 9 in. ; Pain 6/10; 13:15 BP 133 / 69; Pulse 58; Resp 17; Pulse Ox 100% on R/A; ar8 15:30 BP 134 / 71; Pulse 61; Resp 16; Pulse Ox 98% on R/A; ar8 16:30 BP 135 / 74; Pulse 66; Resp 19; Pulse Ox 96% on R/A; ar8 12:41 Body Mass Index 27.17 (83.46 kg, 175.26 cm) dd2 12:41 Pain Scale: Adult dd2 Jose Coma Score: 12:47 Eye Response: spontaneous(4). Motor Response: obeys commands(6). Verbal Response: dd2 oriented(5). Total: 15. ED Course: 12:09 Patient arrived in ED. al6 12:13 Sotero Hernandez MD is Attending Physician. rn 12:43 Triage completed. dd2 12:43 Arm band placed on right wrist. dd2 12:47 Patient has correct armband on for positive identification. Bed in low position. Call dd2 light in reach. Side rails up X2. Client placed on continuous cardiac and pulse oximetry monitoring. NIBP monitoring applied. Door closed. Noise minimized. Pillow given. Verbal reassurance given. 12:47 No provider procedures requiring assistance completed. Patient maintains SpO2 dd2 saturation greater than 95% on room air. 12:49 Inserted saline lock: 20 gauge in left antecubital area, using aseptic technique. Blood ar8 collected. Flushed with 10 mL NS. 13:00 Amilcar Landry, BERNARDO is Primary Nurse. ar8 13:52 Abdomen In Process Unspecified. EDMS 15:03 Baldev Stewart MD is Hospitalizing Provider. rn 16:38 Patient admitted, IV remains in place. intact, bleeding controlled, No redness/swelling ar8 at site. Pressure dressing applied. Administered Medications: 12:56 Drug: NS 0.9% IV 500 ml 500 ml IV at 1 bolus once; to be given as a bolus over 30 ar8 minutes Volume: 500 ml; Route: IV; Rate: 1 bolus; Site: left antecubital; 13:30 Follow up: IV Status: Completed infusion dd2 14:30 Drug: Insulin Regular Human Sub-Q 5 units Sub-Q once {Co-Signature: dd2 (SARA ROSA RN).} Route: Sub-Q; Site: left upper arm; 14:45 Follow up: Response: No adverse reaction dd2 15:11 Drug: Rocephin IV 1 grams IV at calculated rate once; Given slow IV push per pharmacy dd2 instructions Route: IV; Rate: calculated rate; Site: left antecubital; 15:37 Follow up: Response: No adverse reaction; IV Status: Completed infusion dd2 15:37 Drug: metroNIDAZOLE IVPB 500 mg 100 ml IVPB at 200 ml/hr once over 30 mins Volume: 100 dd2 ml; Route: IVPB; Rate: 200 ml/hr; Infused Over: 30 mins; Site: left antecubital; 16:38 Follow up: Response: No adverse reaction; IV Status: Completed infusion; IV Intake: ar8 100ml Medication: 12:47 VIS not applicable for this client. dd2 Intake: 16:38 IV: 100ml; Total: 100ml. ar8 Outcome: 15:05 Decision to Hospitalize by Provider. rn 16:38 Patient left the ED. sb4 16:38 Admitted to Med/surg accompanied by tech, family with patient, via wheelchair, room ar8 205, with chart, Report called to faxed to unit 16:38 Condition: stable ar8 16:38 Discharge instructions given to Educated on reason for admission Signatures: Dispatcher [employer] EDMS oStero Hernandez MD MD rn Blanchard, Shelby, RN RN ss Brown, Sophia, PA-C PA-C sb4 SARA ROSA RN RN dd2 Livier Grant Andrea, RN RN ar8 SARA ROSA RN, dd2
[2025-05-18] MEDS ORDERED: ACETAMINOPHEN 500 MG TAB PO PRN (16:45)
[2025-05-18] MEDS ORDERED: ONDANSETRON 4 MG/2 ML VIAL IV PRN (16:45)
[2025-05-18 17:23] VITALS: BMI 27.3
[2025-05-18] MEDS: NA CHLORIDE 0.9% 1,000 ML IV SCH ×2 (18:41→22:14)
[2025-05-18] MEDS: INSULIN REGULAR (HUMAN) 100 UNIT/ML SQ SCH (20:12)
--- NOTE | 2025-05-18 22:27 | P.HP ---
Patient History Date of Service: 05/18/25 Reason for admission: ABDOMEN PAIN, DIARRHEA AND WEAKNESS History of Present Illness: NIKKI IS A DIABETIC WITH CKD, GCA ON STEROIDS AND IMMURAN, NOT ABLE TO GET OFF STEROIDS. HE IS MANAGED BY DR VALENTIN. HE IS TO DO LAB EVERY 3 MONTHS FOR A1C BUT HE HAS NOT DONE SO. IN LAST ONE YEAR I HAVE GIVEN HIM ORDERS TWICE. HE ALSO STOPPED FARXIGA BECAUSE OF COST AND NEVER TOLD ME ABOUT IT. HE HAS ABDOMEN PAIN AND DIARRHEA WITH VERY LOW AMOUNT OF STOOL, MORE PAIN AND FEELING OF MOVEMENT. CT SCAN SHOWS DIVERTICULITIS AND COLITIS. Allergies Waaoujh-WEN-UzR Reductase Inhibitor Allergy (Verified 05/20/24 12:19) Extreme Fatigue Home Medications: Losartan Potassium 100 mg PO BEDTIME 12/27/22 Metoprolol Succinate 50 mg PO DAILY 12/27/22 Omeprazole [Prilosec] 40 mg PO DAILY 12/27/22 Hydralazine HCl 50 mg PO TID 05/20/24 azaTHIOprine [Imuran] 50 mg PO BID 05/20/24 hydroCHLOROthiazide [Hydrochlorothiazide*] 12.5 mg PO DAILY 05/20/24 predniSONE [Deltasone] 3 mg PO DAILY 05/20/24 - Past Medical/Surgical History Has patient received pneumonia vaccine in the past: Yes Diabetic: Yes -: pancreatitis -: diabetes-NIDDM -: RA -: polymyalgia rheumatica -: giant cell arteritis-with biopsy -: skin cancer -: endoscopy -: colonoscopy -: skin cancer removal -: cholecystectomy - Family History Mother Notes: intestinal blockage Father Notes: Alzheimer's - Social History Smoking Status: Former smoker Alcohol use: No CD- Drugs: No Caffeine use: Yes Place of Residence: Home Review of Systems 10-point ROS is otherwise unremarkable General: Weakness, As per HPI Physical Examination - Vital Signs Temperature: 98.2 F Blood Pressure: 125/56 Pulse: 77 Respirations: 16 Pulse Ox (%): 97 - Physical Exam General: Acute distress, Moderate distress HEENT: Atraumatic, PERRLA, Mucous membr. moist/pink, EOMI, Sclerae nonicteric Neck: Supple, 2+ carotid pulse no bruit, No LAD, Without JVD or thyroid abnormality Respiratory: Clear to auscultation bilaterally, Normal air movement Cardiovascular: Regular rate/rhythm, Normal S1 S2 Gastrointestinal: Normal bowel sounds, Tenderness (DIFFUSE LOWER ABDOMEN. NO REBOUND.) Musculoskeletal: No tenderness Integumentary: No rashes Neurological: Normal gait, Normal speech, Normal strength at 5/5 x4 extr, Normal tone, Normal affect Lymphatics: No axilla or inguinal lymphadenopathy - Studies Laboratory Data (last 24 hrs) 05/18/25 05/18/25 12:48 12:48 WBC 6.60 Hgb 13.2 L Hct 39.7 Plt Count 260 Sodium 132 L Potassium 4.7 BUN 40 H Creatinine 1.98 H Glucose 482 H* Total Bilirubin 0.5 AST 16 ALT 15 L Alkaline Phosphatase 64 Lipase 16 Assessment and Plan - Problems (Diagnosis) (1) Acute diverticulitis Current Visit: Yes Status: Acute Plan: IV ABX MAY BE ORAL IN AM. STABLE. (2) Diabetes mellitus due to underlying condition with chronic kidney disease on chronic dialysis, with long-term current use of insulin Current Visit: Yes Status: Acute Plan: HE HAS CKD HE WILL BE STARTED ON INSULIN COMPLIANCE IS POOR. HE IS NOT DOING LAB EVERY 3 MTHS LIKE IS TO DO. HE DOES NOT CHCEK GLUCOSE HE SEEMS TO BE IN DENIAL. (3) Diabetes mellitus with hyperglycemia Current Visit: Yes Status: Acute Plan: [facility] WILL DISCUSS INSULIN WITH PATIENT. CKD AN D CAN'T TAKE METFORMIN. AMINATAGA, JARDIANCE, TOO COSLTY. Qualifiers: Diabetes mellitus type: type 2 (4) Acute renal failure superimposed on chronic kidney disease Current Visit: No Status: Acute Plan: BASELINE CREAT IS 1.6 I SHOULD SHE IT IMPROVED TO THAT LEVEL FROM 1.99 Qualifiers: Chronic kidney disease stage: stage 3 (moderate) (5) PMR (polymyalgia rheumatica) Current Visit: No Status: Chronic - Advance Directives Does patient have a Living Will: No Does patient have a Durable POA for Healthcare: No
[2025-05-19] MEDS: METRONIDAZOLE 500mg IVPB 500 MG/100 ML BAG IV SCH (01:08)
[2025-05-19 03:10] VITALS: O2SAT 97
[2025-05-19 05:03] LABS: Absolute Lymphocytes (CBC) 0.5 K/uL (0.7-4.9); Hematocrit 33.3 % (39.6-49.0); Hemoglobin 11.4 g/dL (13.6-17.9); MCH 33.7 pg (27.0-35.0); MCHC 34.1 g/dL (32.0-36.0); MCV 98.8 fL (80-100); MPV 8.4 fL (7.6-11.3); Nucleated RBC Absolute Count 0.0 (0-0); Nucleated Red Blood Cells % 0.1 % (0-0); RBC Red Blood Cell Count 3.38 M/uL (4.33-5.43); White Blood Count 4.70 thou/uL (4.3-10.9)
[2025-05-19 05:31] LABS: Anion Gap 9.9 mEq/L (5.0-15.0); BUN Blood Urea Nitrogen 28.0 mg/dL (7-18); Glucose Level 276.0 mg/dL (74-106); Potassium 3.9 mEq/L (3.5-5.1)
[2025-05-19 06:10] LABS: CDIFF INTERNAL NEG CONTROL White Background (WHITE BKGD); STOOL CONSISTENCY Liquid/Semi-Solid
[2025-05-19 06:11] LABS: C.diff Antigen/Toxin Ag neg : Tox neg (NEG : NEG)
[2025-05-19] MEDS ORDERED: PANTOPRAZOLE 40MG TABLET PO SCH (07:30)
[2025-05-19 08:36] VITALS: BP 129/63; TEMP 98.1
[2025-05-19] MEDS ORDERED: INSULIN GLARGINE 100 UNIT/ML SQ SCH (09:00)
[2025-05-19] MEDS ORDERED: NA CHLORIDE 0.9% IV SCH (09:00)
[2025-05-19] MEDS ORDERED: CEFTRIAXONE IV SCH (09:00)
[2025-05-19] MEDS ORDERED: METOPROLOL XL 50 MG TAB PO SCH (09:00)
[2025-05-19] MEDS ORDERED: CEFTRIAXONE 1,000 MG in NA CHLORIDE 0.9% 50 ML IVPB SCH (09:00)
[2025-05-19] MEDS ORDERED: AZATHIOPRINE 50 MG TABLET PO SCH (09:00)
== END 2025-05-19 10:25 | disposition home or self-care (01) | DRG 386 ==
LOC: ER 12:05 → ERHOLD 15:27 → 2ND 15:55
PROVIDERS: ADMIT Internal Medicine; ATTEND Internal Medicine
DX: K51.50 Left sided colitis without complications (principal); K57.32 Diverticulitis of large intestine without perforation or abscess without bleeding; N17.9 Acute kidney failure, unspecified; E86.0 Dehydration; M35.3 Polymyalgia rheumatica; M06.9 Rheumatoid arthritis, unspecified; I12.9 Hypertensive chronic kidney disease with stage 1 through stage 4 chronic kidney disease, or unspecified chronic kidney disease; N18.30 Chronic kidney disease, stage 3 unspecified; E11.22 Type 2 diabetes mellitus with diabetic chronic kidney disease; E11.65 Type 2 diabetes mellitus with hyperglycemia; T38.3X6A Underdosing of insulin and oral hypoglycemic [antidiabetic] drugs, initial encounter; Z88.8 Allergy status to other drugs, medicaments and biological substances; Z90.49 Acquired absence of other specified parts of digestive tract; Z85.828 Personal history of other malignant neoplasm of skin; Z91.141 Patient's other noncompliance with medication regimen due to financial hardship; Z79.52 Long term (current) use of systemic steroids; Z79.899 Other long term (current) drug therapy; Z87.891 Personal history of nicotine dependence; Z79.4 Long term (current) use of insulin
CPT/HCPCS: 36415; 74176; 80048; 80053; 81003; 82947; 83036; 83690; 84403; 84443; 85025; 87324; 96361; 96365; 96367; 96372; 99285; J0696; J1815; J7030; J7040; J7500